=== PATIENT | female | born 1940 | race African-American/Black ===

== ENCOUNTER 2016-11-30 19:15 | Inpatient (IN) | payer OTHER ==
[~2016-11-30] VITALS: Ht 152.4 cm; Wt 65.3 kg
--- NOTE | ~2016-11-30 | H ---
[facility] [place] [place] [address] HISTORY AND PHYSICAL Name: YENIFER SIBLEY Room #: 445-P [facility] IN M.R.#: [id number] Admission: 11/30/16 Attend Phys: Juana Cline MD Discharge: 12/02/16 Date of : 44 Report #: [id number] THIS REPORT FOR: //name// CC: Damien Cline DATE OF SERVICE: 12/01/2016 CHIEF COMPLAINT: Altered mental status with confusion. HISTORY OF PRESENT ILLNESS: The patient is a 76-year-old -[place] Citizen female who lives independently at home. She was in usual state of wellbeing until the morning of admission when her family reported that she was confused. She lives alone by herself and was thinking it was Friday and was reportedly disoriented. She was brought to [facility] Emergency Room for evaluation. In the emergency room, she remained disoriented and workup revealed abnormal labs with elevated BUN and creatinine as well as INR. Given the fact she lives independently and remains confused, it was deemed that she needs admission for medical management of volume depletion and altered mental status. PAST MEDICAL HISTORY: Chronic back pain requiring [place], mitral valve replacement requiring anticoagulation with Coumadin, hypertension, osteoarthritis, atherosclerotic cerebrovascular disease with history of stroke, left shoulder surgery, thalassemia trait, congestive heart failure, hyperlipidemia, and asthma. ALLERGIES: PENICILLIN, SULFA, CIPRO, CLARITHROMYCIN and ADHESIVE TAPE. MEDICATIONS: ProAir inhaler 2 puffs q.4 hours p.r.n., baclofen 5 mg b.i.d., warfarin 7.5 mg daily, simvastatin 10 mg daily, hydralazine 25 mg b.i.d., Coreg 12.5 mg b.i.d., lisinopril 20 mg daily, tramadol 50 mg q.6 hours p.r.n., [place] 5/325 one every 4 hours as needed, potassium chloride 10 mEq daily, Lasix 40 mg daily, guaifenesin 200 mg p.o. q.4 hours p.r.n., Colace 200 mg at bedtime, vitamin B complex 1 tablet b.i.d., vitamin D3 1 tablet daily. FAMILY HISTORY: Noncontributory. SOCIAL HISTORY: The patient lives alone at home. She denies tobacco or alcohol use. REVIEW OF SYSTEMS: HEENT: Negative. CARDIAC: Negative. PULMONARY: Negative. GASTROINTESTINAL: Negative. LYMPHATICS: Negative. [address] [address] HISTORY AND PHYSICAL Name: YENIFER SIBLEY Room #: 445-P DIS IN [facility]#: [id number] Admission: 11/30/16 Attend Phys: Juana Cline MD Discharge: 12/02/16 Date of : 44 Report #: [id number] MUSCULOSKELETAL: Negative. NEUROLOGIC: Confusion, otherwise no focal deficits. ENDOCRINE: Negative. PHYSICAL EXAMINATION: GENERAL: The patient is a pleasant, cooperative -[place] Citizen female lying in bed in no apparent distress. VITAL SIGNS: Reveal temperature of 36.9, pulse of 86, respiratory rate 20, blood pressure currently 90/43, although last evening it was 197/94. HEENT: Head is normocephalic, atraumatic. Pupils are equal and reactive. Extraocular muscles are intact. Oropharynx is dry. NECK: Supple. Trachea midline. LUNGS: Clear. CARDIOVASCULAR: Regular rate and rhythm. ABDOMEN: Soft, nontender, nondistended with normoactive bowel sounds. SKIN: Warm and dry. Turgor is diminished with mild tenting. LYMPHATICS: No cervical or axillary lymphadenopathy. NEUROLOGICAL: The patient is awake, alert, oriented times 3. Cranial nerves 2-12 within normal limits without focal neurologic deficit or lateralizing signs. LABORATORY DATA: Pertinent labs include a CO2 of 20, BUN of 66 and she is normally around 27, creatinine 2.8, baseline is usually around 1.5. Hemoglobin is 11.5 with baseline usually between 8 and 9, hematocrit is 36.6. Urinalysis unremarkable. RADIOGRAPHIC STUDIES: Include CT of head without contrast which shows moderate atrophy with extensive white matter ischemic changes, no hemorrhage or acute infarct is seen. Chest x-ray is unremarkable. ASSESSMENT: 1. Volume depletion, most likely a combination of poor fluid intake and diuretic therapy. 2. Acute metabolic encephalopathy as a complication of volume depletion. 3. Elevated INR as a complication of volume depletion. PLAN: Admission, we will give IV fluids. We will hold warfarin, continue to monitor her BMP and INR. We will ask PT to evaluate and treat to maintain her strength to prevent deconditioning while she is in the hospital. <ELECTRONICALLY SIGNED> By: Juana Cline MD 12/05/16 1522 [id number] 18 Juana Cline MD /nt
--- NOTE | ~2016-11-30 | EKG ---
[address] [address] ELECTROCARDIOGRAM REPORT Name: YENIFER SIBLEY Room #: 445-P ADM IN M.R.#: [id number] Admission: 11/30/16 Attend Phys: Juana Cline MD Discharge: Date of : 44 Report #: [id number] THIS REPORT FOR: //name// [facility] ED Test Date: 2016-11-30 Test Time: 19:47:21 Pat Name: YENIFER SIBLEY Department: Room: [facility] Gender: F Director Information Security: jax palafox : 1940 Requested By: Mikayla Negron Order Number: [id number] MD: Lewis Bridges Measurements Intervals Viola Rate: 75 P: 42 NE: 162 QRS: 9 QRSD: 93 T: 42 QT: 430 QTc: 481 Interpretive Statements Sinus rhythm Compared to ECG 11/30/2015 20:25:52 Sinus arrhythmia no longer present Early repolarization no longer present Possible ischemia no longer present Electronically Signed On 12-01-2016 22:27:45 CDT by Lewis Bridges [email or web address] <ELECTRONICALLY SIGNED> By: Lewis Bridges MD 12/01/162226 46 46 Lewis Bridges MD /EPI
[~2016-11-30 19:15] MED LIST: AMBIEN 10 MG TA10 MG PO; AMBIEN 5 MG TABL5 M1; C-1000 WITH R1000 MG PO; CARVEDILOL25 MG; CLONIDINE0.1 PO; CLOPIDOGREL75 MG PO; COLACE100 MG PO; COUMADIN 5 MG TA5 M1 PO; COUMADIN7.5 MG PO; COZAAR100 MG PO; DOXYCYCLINE 10100 M1 PO; DUONEB 2.5-0.5 M3 ML; FISH OIL 1,001000 M1 PO; FISH OIL 1,001000 M2; FLAX OIL1000 MG; FLAXSEED1000 MG PO; FLOVENT HFA 1110 MCG INH; HYDRALAZINE 2525 MG PO; IBUPROFEN 200200 M1 PO; IRON325 PO; KLOR-CON 1010 MEQ; KLOR-CON 1010 MEQ PO; LASIX 20 MG TAB20 MG PO; LEVAQUIN 500 M500 M4 PO; LISINOPRIL20 MG PO; MEDROLDOSEPACK PO; MELATONIN3 MG PO; NITROFURANTOIN100 MG PO; NORCO 5-325 TA1 EACH PO; PERCOCET 7.5-31 EACH PO; PLAVIX 75 MG TA75 M1; PRINIVIL20 MG; SIMVASTATIN10 MG; SIMVASTATIN10 MG PO; TRAMADOL 50 MG50 MG; TRAMADOL 50 MG50 MG PO; VERAPAMIL ER240 M1 PO; VERAPAMIL HCL120 MG PO; VITAMIN C + RO500 MG PO; VITAMIN C250 M1; VITAMIN D31000 UNI2 PO; VITAMIN D3400 UNIT
[2016-11-30 19:16] VITALS: BP 145/79
[2016-11-30 19:51] LABS: HEMATOCRIT 36.6 % (37.0-47.0); HEMOGLOBIN 11.5 gm/dL (12.0-15.0); MCH 21.5 pg (26.0-34.0); MCHC 31.5 g/dL (28.0-37.0); MCV 68.3 fL (80.0-100.0); PLATELET COUNT 235 thou/uL (150-400); RBC 5.36 mil/uL (4.20-5.00); RDW 15.2 % (10.5-14.5); WBC 6.9 thou/uL (4.0-11.0)
[2016-11-30 19:53] LABS: MANUAL DIFF YES
[2016-11-30 19:59] LABS: ANION GAP 15 mmol/L (7-16); BUN 66 mg/dL (7-18); CALCIUM 9.8 mg/dL (8.5-10.1); CHLORIDE 108 mmol/L (98-107); CO2 20 mmol/L (21-32); CREATININE 2.8 mg/dL (0.6-1.0); GLUCOSE 101 mg/dL (74-106); POTASSIUM 4.3 mmol/L (3.5-5.1); SODIUM 143 mmol/L (136-145)
[2016-11-30 20:07] LABS: APTT 38.8 Seconds (24.5-32.8); INR 3.9; PROTIME 40.3 Seconds (9.3-11.4); TROPONIN-I 0.17 ng/mL (<0.04-0.07)
[2016-11-30 20:12] LABS: ABSOLUTE NEUTROPHILS 4.6 thou/uL (1.4-8.2); HYPOCHROMASIA 1+; MICROCYTES 1+; TOTAL CELL COUNT 100
[2016-11-30 20:19] LABS: URINE BILIRUBIN NEGATIVE (Negative); URINE BLOOD NEGATIVE (Negative); URINE COLOR YELLOW; URINE GLUCOSE-RANDOM* NEGATIVE (Negative); URINE KETONES NEGATIVE (Negative); URINE NITRITE NEGATIVE (Negative); URINE PROTEIN (DIPSTICK) NEGATIVE (Negative); URINE UROBILINOGEN 0.2 E.U./dl (0.2-1.0)
[2016-11-30] MEDS ORDERED: VITAMIN B COMP1 EACH PO (21:08)
[2016-11-30] MEDS ORDERED: CLEOCIN HCL150 MG PO (21:10)
[2016-11-30 21:25] VITALS: BP 163/70
[2016-11-30 21:53] VITALS: BP 179/80
[2016-11-30] MEDS ORDERED: LIORESAL 10 MG10 MG PO (22:06)
[2016-11-30] MEDS ORDERED: HYDROCODONE-AP1 EAC6 PO (22:06)
[2016-11-30] MEDS ORDERED: PROAIR HFA8.5 GM INH (22:07)
[2016-11-30] MEDS ORDERED: ROBITUSSIN100 MG/53 PO (22:07)
[2016-12-01 04:30] VITALS: BP 155/65
[2016-12-01 05:53] LABS: HEMATOCRIT 35.3 % (37.0-47.0); MCH 21.2 pg (26.0-34.0); MCHC 31.1 g/dL (28.0-37.0); MCV 68.4 fL (80.0-100.0); RBC 5.16 mil/uL (4.20-5.00); RDW 14.9 % (10.5-14.5); WBC 6.4 thou/uL (4.0-11.0)
[2016-12-01 06:15] LABS: CALCIUM 9.2 mg/dL (8.5-10.1); CREATININE 2.2 mg/dL (0.6-1.0); POTASSIUM 4.5 mmol/L (3.5-5.1); TROPONIN-I 0.19 ng/mL (<0.04-0.07)
[2016-12-01 08:21] VITALS: BP 125/54
[2016-12-01 12:28] VITALS: BP 90/43
[2016-12-01 16:29] VITALS: BP 102/43
[2016-12-01 20:29] VITALS: BP 104/51
[2016-12-02 03:55] VITALS: BP 107/41
[2016-12-02 06:32] LABS: INR 2.8; PROTIME 29.5 Seconds (9.3-11.4)
[2016-12-02 06:41] LABS: CALCIUM 8.2 mg/dL (8.5-10.1); CREATININE 1.9 mg/dL (0.6-1.0); POTASSIUM 4.8 mmol/L (3.5-5.1)
[2016-12-02 07:30] VITALS: BP 125/56
[2016-12-02 15:45] VITALS: BP 136/64
[2016-12-02 16:14] VITALS: BP 136/64
== END 2016-12-02 16:52 | disposition home or self-care (01) | DRG 682 ==
LOC: ER 19:15 → EROBS 21:06 → 4S 21:06
PROVIDERS: Emergency Medicine; Internal Medicine
DX: N17.9 Acute kidney failure, unspecified (principal); G93.41 Metabolic encephalopathy; I13.0 Hypertensive heart and chronic kidney disease with heart failure and stage 1 through stage 4 chronic kidney disease, or unspecified chronic kidney disease; I16.0 Hypertensive urgency; J45.909 Unspecified asthma, uncomplicated; Z96.612 Presence of left artificial shoulder joint; I48.91 Unspecified atrial fibrillation; Z60.2 Problems related to living alone; N18.2 Chronic kidney disease, stage 2 (mild); I50.9 Heart failure, unspecified; M47.9 Spondylosis, unspecified; Z96.1 Presence of intraocular lens; R41.0 Disorientation, unspecified; K21.9 Gastro-esophageal reflux disease without esophagitis; E86.0 Dehydration; G89.29 Other chronic pain; M54.9 Dorsalgia, unspecified; E78.5 Hyperlipidemia, unspecified; Z79.01 Long term (current) use of anticoagulants; Z79.899 Other long term (current) drug therapy; Z95.2 Presence of prosthetic heart valve; Z90.710 Acquired absence of both cervix and uterus; Z98.41 Cataract extraction status, right eye; Z86.73 Personal history of transient ischemic attack (TIA), and cerebral infarction without residual deficits; Z95.820 Peripheral vascular angioplasty status with implants and grafts; Z88.1 Allergy status to other antibiotic agents; Z88.0 Allergy status to penicillin; Z88.2 Allergy status to sulfonamides; Z91.048 Other nonmedicinal substance allergy status
CPT/HCPCS: 10100